=== PATIENT | male | born 1980 | race Caucasian/White ===

== ENCOUNTER 2020-12-21 20:10 | Emergency (ER) | payer MEDICAID ==
[~2020-12-21] VITALS: Ht 167.6 cm; Wt 68.1 kg
[2020-12-21 20:15] VITALS: BP 136/92
[2020-12-21] MEDS ORDERED: acetaminophen 325mg tablet PO ONE (22:10)
--- NOTE | 2020-12-21 22:14 | NUR ---
pt has wound on head from a slip and fall in the shower. Denies LOC, N/V. placed two bradford in scalp lac. Pt given 650 mg tylenol for pain and ice pack
== END 2020-12-21 22:27 | disposition home or self-care (01) ==
LOC: ER 20:11
DX: S01.01XA Laceration without foreign body of scalp, initial encounter (principal); Z56.0 Unemployment, unspecified; Z59.0 Homelessness; W18.2XXA Fall in (into) shower or empty bathtub, initial encounter; Z91.81 History of falling; Y93.89 Activity, other specified; Y92.89 Other specified places as the place of occurrence of the external cause; Y99.8 Other external cause status
CPT/HCPCS: 12001; 99284

== ENCOUNTER 2023-09-28 10:49 | Emergency (ER) | payer MEDICAID ==
[~2023-09-28] VITALS: Ht 167.6 cm; Wt 65.9 kg
[2023-09-28 11:16] VITALS: BP 131/91; PULSE 90; RESP 16; TEMP 98; O2SAT 100
[2023-09-28 11:51] LABS: BASOPHILS # (AUTO) 0.1 X10'3 (0-0.2); BASOPHILS % (AUTO) 0.7 % (0-1); EOSINOPHILS # (AUTO) 0.3 X10'3 (0-0.9); EOSINOPHILS % (AUTO) 3.4 % (0-6); HEMATOCRIT 40.3 % (42.0-52.0); HEMOGLOBIN 13.9 g/dl (14.0-17.9); LYMPHOCYTES # (AUTO) 1.3 X10'3 (1.1-4.8); MEAN CORPUSCULAR HEMOGLOBIN 30.1 PG (27.0-31.0); MEAN CORPUSCULAR HGB CONC 34.6 g/dL (33.0-36.5); MEAN CORPUSCULAR VOLUME 87.1 FL (78-98); MEAN PLATELET VOLUME 8.2 FL (7.4-10.4); MONOCYTES # (AUTO) 0.6 X10'3 (0-0.9); MONOCYTES % (AUTO) 6.9 % (2-12); NEUTROPHILS # (AUTO) 5.9 X10'3 (1.8-7.7); PLATELET COUNT 263 X10'3 (140-440); RED BLOOD COUNT 4.62 X10'6 (4.70-6.10); RED CELL DISTRIBUTION WIDTH 13.7 % (11.5-14.5)
[2023-09-28 12:05] LABS: PROTHROMBIN TIME 10.9 SECONDS (9.0-12.0)
[2023-09-28 12:13] LABS: ALANINE AMINOTRANSFERASE 22 U/L (12-78); ALBUMIN 3.6 G/DL (3.4-5.0); ALBUMIN/GLOBULIN RATIO 0.9 (1.1-1.5); ALKALINE PHOSPHATASE 75 IU/L (46-116); ANION GAP 3 (8-16); ASPARTATE AMINO TRANSFERASE 23 U/L (10-37); BILIRUBIN,TOTAL 0.4 MG/DL (0.1-1.0); BLOOD UREA NITROGEN 15 MG/DL (7-18); BUN/CREATININE RATIO 14.9 (10.0-20.0); CALCIUM 9.4 MG/DL (8.5-10.1); CHLORIDE 100 MMOL/L (99-107); CREATININE 1.01 MG/DL (0.60-1.10); GLUCOSE 120 MG/DL (70-104); POTASSIUM 3.9 MMOL/L (3.5-5.1); SODIUM 137 MMOL/L (135-145); TOTAL CARBON DIOXIDE 33.9 MMOL/L (24-32); TOTAL PROTEIN 7.4 G/DL (6.4-8.2); eCRCL 86 ML/MIN; eGFR 81 ML/MIN
[2023-09-28] MEDS ORDERED: ondansetron/PF 4mg/2ml inj IV ONE (12:20)
[2023-09-28 13:59] LABS: OCCULT BLOOD STOOL NEGATIVE (Neg)
== END 2023-09-28 13:26 | disposition home or self-care (01) ==
LOC: ER 10:50
DX: K92.2 Gastrointestinal hemorrhage, unspecified (principal); Z56.0 Unemployment, unspecified; Z59.00 Homelessness unspecified; Z98.890 Other specified postprocedural states
CPT/HCPCS: 36415; 80053; 82272; 85025; 85610; 99283; J2405; A6449; J7030